=== PATIENT | male | born 1950 | race Caucasian/White ===

== ENCOUNTER → 2018-03-20 16:46 | Outpatient (CLI) | payer OTHER, SELFPAY ==
[2018-03-26 10:26] LABS: Testosterone Free 81.9; Testosterone Total 618
== END ==
PROVIDERS: Family Provider Family Medicine; PCP Family Medicine; Visit Provider Family Medicine
DX: E29.1 Testicular hypofunction (principal)
CPT/HCPCS: 36415; 84402; 84403

== ENCOUNTER → 2018-10-16 13:38 | Outpatient (CLI) | payer OTHER, SELFPAY ==
[2018-10-16 14:01] LABS: Hematocrit 46.8 % (41-53); Hemoglobin 16.3 g/dL (13.5-17.5); Mean Corpuscular HGB Conc 34.8 % (30-36); Mean Corpuscular Hemoglobin 36.4 PG (26-34); Mean Corpuscular Volume 104.5 fL (80-100); Platelet Count 133 X10^3/uL (150-400); Red Blood Cell Count 4.48 X10^6/uL (4.5-5.9); White Blood Cell Count 5.7 X10^3/uL (4.5-11.0)
[2018-10-16 15:35] LABS: BUN Creatinine Ratio 28.8 (6-22); Blood Urea Nitrogen 23 mg/dL (9-20); Calcium 9.4 mg/dL (8.4-10.2); Carbon Dioxide 26 mmol/L (22-32); Chloride 102 mmol/L (98-107); Estimated Glomerular Filt Rate > 60.0 mL/min (>60); Glucose 192 mg/dL (80-110); HEMOLYSIS < 15 (0-50); Potassium 3.8 mmol/L (3.4-5.1); Sodium 139 mmol/L (137-145)
[2018-10-16 15:52] LABS: Vitamin D 25 Hydroxy (D3) 24.7 ng/mL (30.0-100.0)
== END ==
PROVIDERS: PCP Student in an Organized Health Care Education/Training Program; Visit Provider Student in an Organized Health Care Education/Training Program
DX: E55.9 Vitamin D deficiency, unspecified (principal); N14.1 Nephropathy induced by other drugs, medicaments and biological substances; T50.8X5A Adverse effect of diagnostic agents, initial encounter; E29.1 Testicular hypofunction; Z79.899 Other long term (current) drug therapy
CPT/HCPCS: 36415; 80048; 82306; 85027

== ENCOUNTER → 2018-10-23 08:10 | Outpatient (CLI) | payer OTHER, SELFPAY ==
--- NOTE | 2018-10-23 08:11 | DI.MRI.S_ITS ---
PROCEDURE: MR CERVICAL SPINE WO/W CON INDICATIONS: Cervical spine injury with new neurological signs TECHNIQUE: Noncontrast sagittal T1 spin echo and T2 fast spin echo, sagittal STIR, foraminal oblique sagittal T2 fast spin echo, axial gradient echo or T2 fast spin echo through the cervical spine. After the administration of contrast, axial and sagittal T1 spin echo with fat saturation through the cervical spine. COMPARISON: [facility], RG, MRI HEAD W/O CONTRAST, 08/09/2004, 9:09. [facility], CR, CERVICAL SPINE 2 OR 3 VIEWS, 09/18/2016, 16:14. [facility], MR, C-SPINE WITHOUT CONTRAST, 11/06/2016, 19:00. FINDINGS: Image quality: Excellent. Alignment and curvature: There is normal bony alignment. Bones: C5-C6 osseous fusion is stable compared to prior examination. There is mild C4-C5 anterolisthesis which has developed in the interval since the prior MRI. There is mild C6 over C7 retrolisthesis which is stable compared to prior. No suspicious enhancement. Spinal cord: Myelomalacia the level of the C6 vertebral body is stable compared to prior MRI. Mild syrinx below the C7 vertebral body is stable compared to prior examination. No cerebellar tonsillar herniation. Small punctate susceptibility artifact noted in the visualized portion of the cerebellar hemispheres bilaterally concerning for remote hemorrhage. No abnormal intramedullary spinal cord enhancement. Paraspinous soft tissues: No paravertebral masses or suspicious enhancement. C2-3: Loss of disc signal. Mild, diffuse disc bulge. Mild narrowing of the central canal. Mild bilateral facet hypertrophy. Moderate right and severe left neural foraminal narrowing with flattening deformity exiting left C3 nerve root. C3-4: Loss of disc signal and height. Moderate, diffuse disc bulge. Moderate bilateral facet hypertrophy. Moderate bilateral uncovertebral joint hypertrophy. Severe central canal narrowing with mild flattening deformity of the cervical spinal cord. Severe bilateral neural foraminal narrowing with flattening deformity exiting C4 nerve roots. C4-5: Loss of disc signal and height. Mild to moderate diffuse disc bulge. Moderate bilateral facet hypertrophy. Moderate bilateral uncovertebral joint hypertrophy. Moderate to severe narrowing of the central canal. Severe bilateral neural foraminal narrowing with flattening deformity exiting C5 nerve roots. C5-6: Status post fusion. Moderate bilateral facet hypertrophy. No central stenosis. Mild right and moderate left neural foraminal narrowing. No neural impingement. C6-7: Loss of disc signal. Mild, diffuse disc bulge and severe bilateral facet hypertrophy. Moderate bilateral uncovertebral joint hypertrophy. Mild narrowing of the central canal. Severe bilateral neural foraminal narrowing with flattening deformity exiting C7 nerve roots. C7-T1: Loss of disc signal. Mild, diffuse disc bulge. Severe bilateral facet hypertrophy. No central stenosis. Mild bilateral neural foraminal narrowing. No neural impingement. IMPRESSION: 1. C5-C6 osseous fusion stable compared to 11/06/16. 2. Cervical spinal cord myelomalacia at the level of the C6 vertebral body is stable compared to prior MRI examination. Small cervical spinal cord syrinx at level of the C7 vertebral body is stable compared to prior MRI examination. 3. Small punctate susceptibility artifacts involving the visualized portion of the cerebellar hemispheres concerning for remote hemorrhage. Findings not significantly changed compared to prior MRI of the brain obtained 08/09/2004. 4. Multilevel degenerative disc disease. 5. Multilevel facet arthropathy and uncovertebral joint hypertrophy. 6. Severe C3-C4 central canal narrowing. Moderate to severe C4-C5 central canal narrowing. Mild C2-C3 and C6-C7 central canal narrowing. 7. Severe bilateral C3-C4, C4-C5 and C6-C7 neural foraminal narrowing. Moderate right and severe left C2-C3 neural foraminal narrowing. Mild right and moderate left C5-C6 neural foraminal narrowing. Mild bilateral C7-T1 neural foraminal narrowing. Dictated by: Uzma Stephens MD, PhD on 10/23/2018 at 15:35 Approved by: Uzma Stephens MD, PhD on 10/23/2018 at 15:57
== END ==
PROVIDERS: PCP Student in an Organized Health Care Education/Training Program; Visit Provider Student in an Organized Health Care Education/Training Program
DX: G82.54 Quadriplegia, C5-C7 incomplete (principal); G95.89 Other specified diseases of spinal cord; M50.31 Other cervical disc degeneration, high cervical region; M48.02 Spinal stenosis, cervical region; M47.812 Spondylosis without myelopathy or radiculopathy, cervical region; Z98.1 Arthrodesis status
CPT/HCPCS: 72156; A9579

== ENCOUNTER 2018-11-09 00:10 | Emergency (ER) | payer OTHER, SELFPAY ==
[2018-11-09 00:25] VITALS: BP 125/74; PULSE 65; RESP 15; TEMP 36.5; O2SAT 100
[2018-11-09 00:58] VITALS: PULSE 65
--- NOTE | 2018-11-09 01:06 | ED.EXTPRO ---
HPI - Extremity Problem General Chief complaint: Extremity Problem,Nontraumatic Stated complaint: thinks infection in left leg Time Seen by Provider: 11/09/18 00:44 Source: patient Mode of arrival: wheelchair Limitations: no limitations History of Present Illness HPI Narrative: Patient is a 68-year-old male who is a quadriplegic. He is not ambulatory. Here for evaluation of redness and swelling to his left lower extremity. He states he has had cellulitis in the past. Has not had any fevers. States this has been worsening over the past day or so. Denies any specific trauma. States that he does have sensation in his lower extremities. Related Data Home Medications Medication Instructions Recorded Confirmed [glaucoma drops] #0 11/16/17 triamcinolone acetonide 0.1 % 1 applictn TOP BID 10/16/18 10/16/18 topical cream Previous Rx's Medication Instructions Recorded Disabled Parking Permit ea #1 12/05/17 [place] See Rx Instructions IM SEE 03/12/18 INSTRUCTIONS #6 syringes #6 each 06/05/18 ketoconazole 2 % topical cream 1 applictn TOP DAILY #30 gram 10/16/18 testosterone cypionate 200 mg/mL 100 mg IM Q2W #10 ml 10/16/18 intramuscular oil hydrochlorothiazide 12.5 mg tablet 12.5 mg PO QDAY #90 tab 10/20/18 baclofen 20 mg tablet 20 mg PO Q DAY #90 tab 10/28/18 doxycycline hyclate 100 mg PO BID 10 Days #20 cap 11/09/18 Allergies Allergy/AdvReac Type Severity Reaction Status Date / Time No Known Drug Allergies Allergy Verified 11/09/18 00:25 Review of Systems Constitutional Denies fever(s) Cardiovascular Denies chest pain and Denies dyspnea Respiratory Denies dyspnea Musculoskeletal Denies myalgias and Denies arthralgias Integumentary/Breasts Comments: Redness to the left lower extremity below the knee Neurologic Comments: No change in neurologic status from baseline Allergic/Immunologic Denies urticaria PFSH Medical History Chronic back pain (Chronic ~1987) Chronic shoulder pain (Chronic) Glaucoma (Chronic) Insomnia (Chronic) Kidney stones (Chronic) Neuropathy (Chronic) Peripheral neuropathy (Chronic ~1994) Scoliosis (Chronic) Spinal injury (Chronic ~1971) Vision disorder (Chronic) Chicken pox (Resolved) Fractures (Resolved ~1971) Measles (Resolved) Mumps (Resolved) Plantar warts (Resolved ~1959) Surgical History Anesthesia (Resolved) Bursitis of elbow (Resolved) History of laminectomy (Resolved ~2003) S/P diskectomy (Resolved) Status post appendectomy (~1964) Family History Father Cancer Mother Diabetes mellitus Social History Smoking Status: Never smoker Family History Father Cancer Mother Diabetes mellitus Social History Smoking Status: Never smoker Exam Initial Vital Signs Initial Vital Signs: Vital Signs Temperature 97.7 F 11/09/18 00:25 Pulse Rate 65 11/09/18 00:25 Respiratory Rate 15 11/09/18 00:25 Blood Pressure 125/74 11/09/18 00:25 Pulse Oximetry 100 11/09/18 00:25 Const General: comfortable, well developed and No acute distress Orientation: alert, awake and oriented x3 Skin Other: Patient with redness of the left lower extremity circumferential however mostly anterior from below the knee to the mid foot. Neuro Other: No change in neurologic status from baseline. Extrem Other: Able to bend at the knee and the foot without discomfort Course Orders Ordered: Discontinued Medications Acetaminophen/Codeine Phosphate (Tylenol #3 Prepack) 1 bottle MISC SEEINSTR ONE Stop: 11/09/18 01:07 Last Admin: 11/09/18 01:18 Dose: 1 bottle Doxycycline Hyclate (Vibramycin) 100 mg PO NOW ONE Stop: 11/09/18 01:07 Last Admin: 11/09/18 01:16 Dose: 100 mg Vital Signs - 8 hr 11/09/18 00:25 11/09/18 00:58 Temperature 97.7 F Pulse Rate 65 Pulse Rate [Left Dorsalis Pedis] 65 Respiratory Rate 15 Blood Pressure 125/74 Pulse Oximetry 100 MDM - Extremity (Nontraumatic) MDM Narrative Medical decision making narrative: Patient is nontoxic appearing. Does have redness of the left lower extremity concerning for cellulitis. Will start on antibiotics. Not septic. Given his 1st dose here in the ER. He is given return precautions. The area was outlined with a pen. He expressed understanding and agreement with plan. Discharge Plan Departure Patient Disposition: Home Clinical Impression: Cellulitis Qualifiers: Site of cellulitis: extremity Site of cellulitis of extremity: lower extremity Laterality: left Qualified Code(s): L03.116 - Cellulitis of left lower limb Discharge Date/Time: 11/09/18 01:20 Interventions: ED Discharge Assessment Last Done: 11/09/18 01:20 Instructions: DI for Cellulitis -- Adult Activity Restrictions/Additional Instructions: Fill the antibiotics and start taking them tomorrow morning as directed. You can shower like normal. If the redness extends outside of the line that was drawn please return to the emergency department. Return if you start to develop fevers or other worsening symptoms. Prescriptions: New doxycycline hyclate 100 mg capsule 100 mg PO BID 10 Days Qty: 20 RF: 0 No Action [glaucoma drops] Qty: 0 RF: 0 Disabled Parking Permit Qty: 1 RF: 0 [place] See Rx Instructions IM SEE INSTRUCTIONS Qty: 6 RF: 0 syringes 3ml Qty: 6 RF: 0 baclofen 20 mg tablet 20 mg PO Q DAY Qty: 90 RF: 1 triamcinolone acetonide 0.1 % cream 1 applictn TOP BID RF: 0 ketoconazole 2 % cream 1 applictn TOP DAILY Qty: 30 RF: 1 testosterone cypionate [Depo-Testosterone] 200 mg/mL oil 100 mg IM Q2W Qty: 10 RF: 5 hydrochlorothiazide 12.5 mg tablet 12.5 mg PO QDAY Qty: 90 RF: 1 Referrals: Constantin Brown MD [Primary Care Provider] -
[2018-11-09] MEDS: DOXYCYCLINE HYCLATE 100 MG TABLET PO (01:16)
[2018-11-09] MEDS: CODEINE/APAP 30/300 PREPACK 1 BOTTLE MISC (01:18)
== END 2018-11-09 01:20 | disposition home or self-care (01) ==
PROVIDERS: Emergency Provider Emergency Medicine; PCP Student in an Organized Health Care Education/Training Program
DX: L03.116 Cellulitis of left lower limb (principal)
CPT/HCPCS: 99282; 99283

== ENCOUNTER → 2020-03-17 09:31 | Outpatient (CLI) | payer OTHER, SELFPAY ==
[2020-03-17 11:14] LABS: Erythrocyte Sedimentation Rate 5 MM/HR (0-15)
[2020-03-17 11:27] LABS: Prostate Specific Antigen Scrn 0.842 ng/mL (0.1-4.0)
[2020-03-17 11:37] LABS: BUN Creatinine Ratio 32.9 (6-22); Blood Urea Nitrogen 26 mg/dL (9-20); Calcium 9.8 mg/dL (8.4-10.2); Carbon Dioxide 29 mmol/L (22-32); Chloride 102 mmol/L (98-107); Estimated Glomerular Filt Rate > 60.0 mL/min (>60); Glucose 68 mg/dL (80-110); HEMOLYSIS < 15 (0-50); Potassium 4.4 mmol/L (3.4-5.1); Sodium 137 mmol/L (137-145)
[2020-03-17 11:40] LABS: C-Reactive Protein Quant < 0.5 mg/dL (<1.0)
== END ==
PROVIDERS: PCP Student in an Organized Health Care Education/Training Program; Referring Provider Student in an Organized Health Care Education/Training Program; Visit Provider Student in an Organized Health Care Education/Training Program
DX: R51 Headache (principal); T50.2X5A Adverse effect of carbonic-anhydrase inhibitors, benzothiadiazides and other diuretics, initial encounter; Z12.5 Encounter for screening for malignant neoplasm of prostate
CPT/HCPCS: 36415; 80048; 85651; 86140; G0103

== ENCOUNTER 2020-03-28 23:16 | Emergency (ER) | payer OTHER, MEDICARE, SELFPAY ==
[2020-03-28 23:29] VITALS: BP 124/59; PULSE 67; RESP 18; TEMP 37.3; O2SAT 95; BMI 20.8
--- NOTE | 2020-03-29 00:42 | ED_ITS ---
HPI - Skin/Abscess/Foreign Bdy General Chief complaint: Skin/Abscess/Foreign Body Stated complaint: thiks celluliltis on left calf Time Seen by Provider: 03/28/20 23:48 Source: patient Mode of arrival: Wheelchair Limitations: no limitations History of Present Illness HPI narrative: 69-year-old male nonsmoker with history of spinal cord injury resulting in paraplegia with loss of use of lower extremities presents with his in the chief complaint about a day and a half painful left lower extremity with redness and warmth and what feels like a knot behind his calf in the absence of any known injury. He has had cellulitis multiple times and states this feels the same. He denies the use of anticoagulation or any history of blood clot. He denies any fever or chills nor any other systemic complaints such as nausea, vomiting or diarrhea. MD complaint: other Onset (ago): day(s) Tetanus up to date: yes Location: LLE Severity: moderate Quality: aching Pain Consistency: constant Relieving factors: rest Exacerbating factors: palpation Associated symptoms: denies other symptoms Treatments prior to arrival: none Related Data Previous Rx's Medication Instructions Recorded baclofen 20 mg tablet 20 mg PO Q DAY #90 tab 05/05/19 temazepam 7.5 mg capsule 7.5 mg PO BEDTIME PRN #30 cap 10/07/19 BD 3ml Syringe w/needle #100 each 12/01/19 testosterone cypionate 200 mg/mL 100 mg IM Q2W #10 ml 12/03/19 intramuscular oil hydrochlorothiazide 12.5 mg tablet 12.5 mg PO QDAY #90 tab 01/29/20 doxycycline hyclate 100 mg PO BID 10 Days #20 tab 03/29/20 Allergies Allergy/AdvReac Type Severity Reaction Status Date / Time No Known Drug Allergies Allergy Verified 03/17/20 08:56 Review of Systems Constitutional Constitutional: Denies chills, Denies fatigue, Denies fever(s), Denies frequent falls, Denies lethargy and Denies weakness Eyes Eyes: Denies change in vision, Denies eye discharge, Denies irritation and Denies loss of vision ENT Ears, Nose, Mouth, and Throat: Denies change in voice, Denies dizziness, Denies neck pain, Denies sore throat and Denies throat swelling Cardiovascular Cardiovascular: Denies chest pain, Denies irregular heart rhythm, Denies lightheadedness, Denies palpitations, Denies dyspnea, Denies dyspnea on exertion and Denies orthopnea Respiratory Respiratory: Denies cough, Denies dyspnea, Denies dyspnea on exertion and Denies wheezing Gastrointestinal Gastrointestinal: Denies abdominal pain, Denies change in bowel habits, Denies diarrhea, Denies nausea and Denies vomiting Musculoskeletal Musculoskeletal: Denies neck pain and Denies numbness Integumentary/Breasts Skin/Breast: Denies pruritus, Reports erythema, Denies rash, Reports skin pain, Reports skin swelling and Denies wounds Neurologic Neurologic: Denies behavioral changes, Denies confusion, Denies dizziness, Denies frequent falls, Denies loss of vision, Denies numbness and Denies weakness Psychiatric Psychiatric: Denies anxiety, Denies behavioral changes, Denies confusion, Denies depression, Denies homicidal ideation and Denies suicidal ideation Endocrine Endocrine: Denies fatigue, Denies flushing and Denies palpitations Hematologic/Lymphatic Hematologic/Lymphatic: Denies easy bruising Allergic/Immunologic Allergic/Immunologic: Denies urticaria, Denies throat swelling and Denies wheezing Patient History Medical History Chicken pox (Resolved) Chronic back pain (Chronic ~1987) Chronic shoulder pain (Chronic) Fractures (Resolved ~1971) Glaucoma (Chronic) Insomnia (Chronic) Kidney stones (Chronic) Measles (Resolved) Mumps (Resolved) Neuropathy (Chronic) Peripheral neuropathy (Chronic ~1994) Plantar warts (Resolved ~1959) Scoliosis (Chronic) Spinal injury (Chronic ~1971) Vision disorder (Chronic) Surgical History Anesthesia (Resolved) Bursitis of elbow (Resolved) History of laminectomy (Resolved ~2003) S/P diskectomy (Resolved) Status post appendectomy (~1964) Family History Father Cancer Mother Diabetes mellitus Social History Smoking Status: Never smoker alcohol intake: current substance use type: does not use Smoking Status: Never smoker alcohol intake frequency: holidays/special occasions only Substance Use Type: does not use Exam Narrative Exam Narrative: GEN: AOx3 and in mild distress EYES: Pupils are equal, round, and reactive to light and accommodation. Extraoccular muscles are intact bilaterally. There is no subconjunctival hemorrhage or exudate. CHEST: Lungs are clear to auscultation bilaterally and free of wheezes, rales, or rhonchi. Heart rate is regular rhythm, there are no murmurs, clicks, rubs, or gallops. There is no chest wall tenderness. ABD: Abdomen is soft and nontender. There is no guarding or rebound. Bowel sounds are normal in all 4 quadrants. There is no mass or organomegaly. EXT: Full painless ROM of all extremities with no loss of sensation or strength. SKIN: Much of the left lower extremity is erythematous and warm with swelling and majority of pain and posterior medial calf Warm, pink, and dry. No erythema or rash Initial Vital Signs Initial Vital Signs: Vital Signs Temperature 99.1 F 03/28/20 23:29 Pulse Rate 67 03/28/20 23:29 Respiratory Rate 18 03/28/20 23:29 Blood Pressure 124/59 L 03/28/20 23:29 Pulse Oximetry 95 03/28/20 23:29 Course Orders Ordered: ED Orders 03/29/20 01:22 Complete Blood Count AUTO DIFF Stat D Dimer Stat 03/29/20 01:56 US periph venous low extrem lt Stat Discontinued Medications Doxycycline Hyclate (Vibramycin) 100 mg PO NOW ONE Stop: 03/29/20 03:32 Last Admin: 03/29/20 03:56 Dose: 100 mg Documented by: LORETTA Vital Signs Vital signs: Vital Signs - 8 hr 03/28/20 23:29 03/29/20 03:58 Temperature 99.1 F Pulse Rate 67 67 Respiratory Rate 18 16 Blood Pressure 124/59 L 123/63 Pulse Oximetry 95 98 MDM - Skin/Abscess/Foreign Bdy Lab Data Result diagrams: 03/29/20 01:22 Labs: Lab Results 03/29/20 03/29/20 Range/Units 01:22 01:22 WBC 10.2 (4.5-11.0) X10^3/uL RBC 4.33 L (4.5-5.9) X10^6/uL Hgb 15.7 (13.5-17.5) g/dL Hct 44.4 (41-53) % MCV 102.4 H (80-100) fL MCH 36.1 H (26-34) PG MCHC 35.3 (30-36) % RDW 12.8 (11.6-14.8) % Plt Count 122 L (150-400) X10^3/uL Neut % (Auto) 84.0 H (50-75) % Lymph % (Auto) 6.0 L (25-40) % [place] % (Auto) 8.5 (3-14) % Eos % (Auto) 1.2 L (2-4) % Baso % (Auto) 0.3 (0-2) % Neut # (Auto) 8600 H (2686-9304) /uL Lymph # (Auto) 600 L (2473-0657) /uL [place] # (Auto) 900 (0-900) /uL Eos # (Auto) 100 (0-450) /uL Baso # (Auto) 0 (0-100) /uL D-Dimer 381 H (<230) ng/mL Imaging Data US - DVT: Radiologist's Impression: No DVT Discharge Plan Departure Patient Disposition: Home Clinical Impression: Cellulitis of left leg Instructions: DI for Cellulitis -- Adult Activity Restrictions/Additional Instructions: *You have been diagnosed with [acute left lower extremity cellulitis] *What to do: *Take medications as directed: Prescription sent to [facility] *Follow up with your primary care provider in 2-3 days, call for an appoin tment. Let them know you were seen in the Emergency Department and that we ask that you be seen in follow up *Return to ER if you should have any new, worsening or concerning symptoms Prescriptions: New doxycycline hyclate 100 mg tablet 100 mg PO BID 10 Days Qty: 20 RF: 0 No Action baclofen 20 mg tablet 20 mg PO Q DAY Qty: 90 RF: 3 temazepam 7.5 mg capsule 7.5 mg PO BEDTIME PRN (Reason: sleep) Qty: 30 RF: 2 (DME) BD 3ml Syringe w/needle 21g x 1 Qty: 100 RF: 0 testosterone cypionate [Depo-Testosterone] 200 mg/mL oil 100 mg IM Q2W Qty: 10 RF: 5 hydrochlorothiazide 12.5 mg tablet 12.5 mg PO QDAY Qty: 90 RF: 1 Referrals: Constantin Brown MD [Primary Care Provider] -
[2020-03-29 01:37] LABS: Add Manual Diff / Slide Review NO; Basophils Absolute Auto 0 /uL (0-100); Basophils Percent Auto 0.3 % (0-2); Eosinophils Absolute Auto 100 /uL (0-450); Eosinophils Percent Auto 1.2 % (2-4); Hematocrit 44.4 % (41-53); Hemoglobin 15.7 g/dL (13.5-17.5); Lymphocytes Absolute Auto 600 /uL (1100-4500); Mean Corpuscular HGB Conc 35.3 % (30-36); Mean Corpuscular Hemoglobin 36.1 PG (26-34); Mean Corpuscular Volume 102.4 fL (80-100); Monocytes Absolute Auto 900 /uL (0-900); Monocytes Percent Auto 8.5 % (3-14); Neutrophils Absolute Auto 8600 /uL (1500-7000); Platelet Count 122 X10^3/uL (150-400); Red Blood Cell Count 4.33 X10^6/uL (4.5-5.9); Red Cell Distribution Width 12.8 % (11.6-14.8); White Blood Cell Count 10.2 X10^3/uL (4.5-11.0)
[2020-03-29 01:51] LABS: D Dimer 381 ng/mL (<230)
--- NOTE | 2020-03-29 01:56 | DI.US.S_ITS ---
PROCEDURE: US PERIPH VENOUS LOW EXTREM LT INDICATIONS: PAIN, REDNESS, SWELLING, ELEVATED DDIMER, SEDENTARY TECHNIQUE: Real-time imaging, as well as color and pulse Doppler interrogation, were performed of the lower extremity deep veins from the inguinal ligament to the popliteal fossa. COMPARISON: None. FINDINGS: The common femoral, femoral and popliteal veins are normally compressible, and free of intraluminal thrombus. Color and pulse Doppler demonstrate normal phasic intraluminal flow. There is normal augmentation response to distal compression maneuver. Incidental note made of nonspecific soft tissue edema involving the left calf. IMPRESSION: No evidence of deep vein thrombosis involving the left lower extremity. Dictated by: Uzma Stephens MD, PhD on 03/29/2020 at 7:09 Approved by: Uzma Stephens MD, PhD on 03/29/2020 at 7:10
[2020-03-29] MEDS: DOXYCYCLINE HYCLATE 100 MG TABLET PO (03:56)
[2020-03-29 03:58] VITALS: BP 123/63; PULSE 67; RESP 16; O2SAT 98
== END 2020-03-29 04:10 | disposition home or self-care (01) ==
PROVIDERS: Emergency Provider Emergency Medicine; PCP Student in an Organized Health Care Education/Training Program
DX: L03.116 Cellulitis of left lower limb (principal)
CPT/HCPCS: 36415; 85025; 85379; 93971; 99284

== ENCOUNTER → 2020-09-10 15:18 | Outpatient (CLI) | payer OTHER, SELFPAY ==
[2020-09-10] MEDS: COVID-19 VACC #1, MRNA(MOD) 100 MCG/0.5 ML VIAL IM (15:27)
== END ==
PROVIDERS: PCP Student in an Organized Health Care Education/Training Program; Visit Provider Internal Medicine
DX: Z23 Encounter for immunization (principal)
CPT/HCPCS: 0011A; 91301

== ENCOUNTER → 2020-10-08 13:49 | Outpatient (CLI) | payer OTHER, SELFPAY ==
[2020-10-08] MEDS: COVID-19 VACC #2, MRNA(MOD) 100 MCG/0.5 ML VIAL IM (13:58)
== END ==
PROVIDERS: PCP Student in an Organized Health Care Education/Training Program; Visit Provider Internal Medicine
DX: Z23 Encounter for immunization (principal)
CPT/HCPCS: 0012A; 91301

== ENCOUNTER → 2021-10-03 07:03 | Outpatient (CLI) | payer OTHER, SELFPAY ==
[2021-10-03 08:19] LABS: Add Manual Diff / Slide Review NO; Basophils Absolute Auto 0 /uL (0-100); Basophils Percent Auto 0.7 % (0-2); Eosinophils Absolute Auto 200 /uL (0-450); Eosinophils Percent Auto 5.1 % (2-4); Hematocrit 41.8 % (41-53); Lymphocytes Absolute Auto 700 /uL (1100-4500); Lymphocytes Percent Auto 18.2 % (25-40); Mean Corpuscular Hemoglobin 36.1 PG (26-34); Mean Corpuscular Volume 100.4 fL (80-100); Monocytes Absolute Auto 400 /uL (0-900); Monocytes Percent Auto 10.2 % (3-14); Neutrophils Absolute Auto 2700 /uL (1500-7000); Neutrophils Percent Auto 65.8 % (50-75); Platelet Count 155 X10^3/uL (150-400); Red Blood Cell Count 4.16 X10^6/uL (4.5-5.9); Red Cell Distribution Width 12.9 % (11.6-14.8); White Blood Cell Count 4.1 X10^3/uL (4.5-11.0)
[2021-10-03 08:39] LABS: Blood Urea Nitrogen 25 mg/dL (9-20); Calcium 9.3 mg/dL (8.4-10.2); Carbon Dioxide 32 mmol/L (22-32); Chloride 105 mmol/L (98-107); Cholesterol 152 mg/dL (140-199); Estimated Glomerular Filt Rate > 60.0 mL/min (>60); Glucose 98 mg/dL (80-110); HDL Cholesterol 72 mg/dL (40-60); HEMOLYSIS < 15 (0-50); LDL Cholesterol Calculated 71 mg/dL (<100); Potassium 3.7 mmol/L (3.4-5.1); Sodium 138 mmol/L (137-145); Triglycerides 44 mg/dL (35-150)
[2021-10-03 08:48] LABS: Vitamin D 25 Hydroxy (D3) 36.7 ng/mL (30.0-100.0)
[2021-10-03 09:06] LABS: Prostate Specific Antigen Scrn 0.864 ng/mL (0.1-4.0)
[2021-10-03 09:09] LABS: Testosterone 555 ng/dL (71.8-623)
== END ==
PROVIDERS: PCP Student in an Organized Health Care Education/Training Program; Referring Provider Student in an Organized Health Care Education/Training Program; Visit Provider Student in an Organized Health Care Education/Training Program
DX: E29.1 Testicular hypofunction (principal); E55.9 Vitamin D deficiency, unspecified; I89.0 Lymphedema, not elsewhere classified; Z13.220 Encounter for screening for lipoid disorders; Z12.5 Encounter for screening for malignant neoplasm of prostate
CPT/HCPCS: 36415; 80048; 80061; 82306; 84403; 85025; G0103

== ENCOUNTER 2022-10-16 05:52 | Emergency (ER) | payer OTHER, SELFPAY ==
--- NOTE | 2022-10-16 06:27 | ED_ITS ---
HPI - Extremity Problem General Chief complaint: Extremity Problem,Nontraumatic Stated complaint: cellulitis left ankle Time Seen by Provider: 10/16/22 05:57 History of Present Illness HPI Narrative: 72-year-old male nonsmoker with history of spinal cord injury resulting in quadriplegia with prior episodes of cellulitis presents with a chief complaint of redness and swelling to the left lower extremity over the past few days. He has no systemic complaints such as fever, chills nor nausea or vomiting. He denies any injury. He is no pain in his calf or medial thigh. Sensation is intact and unchanged. Related Data Previous Rx's Medication Instructions Recorded BD 3ml Syringe w/needle #100 ea 12/01/19 testosterone cypionate 200 mg/mL 100 mg (0.5 mL) IM Q2W #1 mL 08/23/21 intramuscular oil (Depo-Testosterone) hydrochlorothiazide 12.5 mg tablet 12.5 mg PO QDAY #90 tabs 02/07/22 doxycycline hyclate 100 mg tablet 100 mg PO BID #20 tabs 10/16/22 Allergies Allergy/AdvReac Type Severity Reaction Status Date / Time No Known Drug Allergies Allergy Verified 02/14/21 11:29 Review of Systems Review of Systems Narrative: GENERAL: Denies chills, fatigue, malaise, fever, sweats. HEENT: Denies sinus pain, ear pain, sore throat, difficulty swallowing, dizziness. RESPIRATORY: Denies dyspnea, cough, wheezing, hemoptysis, sputum. CARDIOVASCULAR: Denies chest pain, palpitations, orthopnea, edema, GASTROINTESTINAL: Denies nausea, vomiting, abdominal pain, diarrhea, constipa tion, melena. : Denies dysuria, frequency, incontinence, hematuria, urinary retention. MUSCULOSKELETAL: denies weakness, joint pain, or bony pain SKIN: See HPI NEUROLOGIC: Denies weakness, headache, numbness, change in speech, confusion, seizures, incoordination. PSYCHIATRIC: No concerning psychosocial issues. 12 point review of systems is negative except for those stated above Patient History Medical History Chicken pox Chronic back pain (~1987) Chronic right shoulder pain (09/12/16) Chronic shoulder pain Fx C5 vertebra-closed (02/10/04) Glaucoma Incomplete quadriplegia due to spinal cord lesion between fifth and seventh cervical vertebra (12/16/15) Kidney stones Measles Mumps Peripheral neuropathy (~1994) Plantar warts (~1959) Primary insomnia (12/16/15) Scoliosis Spinal injury (~1971) Syringomyelia Vision disorder Surgical History Anesthesia Bursitis of elbow History of laminectomy (~2003) S/P diskectomy Status post appendectomy (~1964) Family History Father Cancer Mother Diabetes mellitus Social History Smoking Status: Never smoker alcohol intake: current substance use type: does not use Smoking Status: Never smoker alcohol intake frequency: holidays/special occasions only Substance Use Type: does not use Exam Narrative Exam Narrative: GEN: AOx3 and in mild distress EYES: Pupils are equal, round, and reactive to light and accommodation. Extraoccular muscles are intact bilaterally. There is no subconjunctival hemorrhage or exudate. CHEST: Lungs are clear to auscultation bilaterally and free of wheezes, rales, or rhonchi. Heart rate is regular rhythm, there are no murmurs, clicks, rubs, or gallops. There is no chest wall tenderness. ABD: Abdomen is soft and nontender. There is no guarding or rebound. Bowel sounds are normal in all 4 quadrants. There is no mass or organomegaly. EXT: Full painless ROM of all extremities with no loss of sensation or strength. SKIN: Redness and warmth along left lateral lower extremity without induration or fluctuance, no breaks in the skin, not circumferential, no pain with calf squeeze or passive dorsiflexion at the ankle, no lymphangitis, or medial thigh pain Initial Vital Signs Initial Vital Signs: Vital Signs Pulse Rate 59 L 10/16/22 06:43 Blood Pressure 131/66 10/16/22 06:43 Pulse Oximetry 99 10/16/22 06:43 Course Orders Ordered: Discontinued Medications Doxycycline Hyclate (Doxycycline Hyclate 100 Mg Tablet) 100 mg PO NOW ONE Stop: 10/16/22 07:14 Last Admin: 10/16/22 07:24 Dose: 100 mg Documented By: CTS MDM - Extremity (Nontraumatic) MDM Narrative Medical decision making narrative: [72] year old patient presents with left lateral leg pain redness in the absence of injury Multiple etiologies for patient's symptoms considered including, but not limited to: [Infection versus DVT versus other] Prior Charts reviewed in our EMR Primary Historian: patient Imaging reviewed: Ultrasound negative for DVT Multiple diagnoses considered, noted above, for pain and redness in the absence of injury, most notably infection versus clot. Patient has had cellulitis in the past states this has presented in a similar fashion, thankfully has no systemic findings that would suggest a large workup is necessary. Ultrasound shows no finding of clot. At this finding I discussed antibiotic options with patient and , questions answered to their apparent satisfaction Findings and discharge diagnosis discussed with patient/family followed by verbalization of understanding Return precautions discussed with patient/family whom verbalize understanding of diagnosis and plan Discharge Plan Departure Patient Disposition: Home Clinical Impression: Cellulitis of left leg Instructions: DI for Cellulitis -- Adult Activity Restrictions/Additional Instructions: *You have been diagnosed with [left lower extremity redness and warmth, likely due to cellulitis. As we discussed the ultrasound was negative for DVT] *What to do: *Please continue to take your regular medications as directed. [x ] New medication prescriptions sent to your pharmacy: [[facility] ] [ ] New medication written as a paper prescription [ ] No new medications given *Please follow up with your primary care provider in 2-3 days, call for an appointment. Let them know you were seen in the Emergency Department and that we ask that you be seen in follow up. We will electronically transmit a record of today's note if your PCP is in our system *Return to Emergency Department if you should have any new, worsening or concerning symptoms, such as [fever greater than 101 F, shaking chills, worsening pain, persistent vomiting or other bothersome symptoms] Prescriptions: New doxycycline hyclate 100 mg tablet 100 mg PO BID Qty: 20 0RF No Action (DME) BD 3ml Syringe w/needle 21g x 1 Qty: 100 0RF Rx Instructions: Use along w/needles to inject testosterone. testosterone cypionate [Depo-Testosterone] 200 mg/mL oil 100 mg IM Q2W Qty: 1 0RF Rx Instructions: Inject 100mg (0.5mL) every 2 weeks for hypogonadism. hydrochlorothiazide 12.5 mg tablet 12.5 mg PO QDAY Qty: 90 1RF Referrals: Constantin Brown MD [Physician] - Stand Alone Forms: Patient Portal/API
[2022-10-16 06:43] VITALS: BP 131/66; PULSE 59; O2SAT 99
--- NOTE | 2022-10-16 06:43 | DI.US.S_ITS ---
PROCEDURE: [facility] VENOUS LOW EXTREM LT INDICATIONS: LEFT LOWR EXTREMITY PAIN REDNESS TECHNIQUE: Real-time imaging, as well as color and pulse Doppler interrogation, were performed of the lower extremity deep veins from the inguinal ligament to the popliteal fossa. COMPARISON: [facility], [facility] VENOUS LOW EXTREM LT, 03/29/2020, 2:30. FINDINGS: The common femoral, femoral and popliteal veins are normally compressible, and free of intraluminal thrombus. Color and pulse Doppler demonstrate normal phasic intraluminal flow. There is normal augmentation response to distal compression maneuver. IMPRESSION: Negative left lower extremity duplex venous ultrasound for DVT. Dictated by: Travis Muñiz M.D. on 10/16/2022 at 7:55 Approved by: Travis Muñiz M.D. on 10/16/2022 at 7:55
[2022-10-16 06:47] VITALS: BP 131/66; PULSE 60; RESP 16; TEMP 36.5; O2SAT 99; BMI 21.1
[2022-10-16 07:00] VITALS: BP 134/73; PULSE 59; O2SAT 100
[2022-10-16] MEDS: DOXYCYCLINE HYCLATE 100 MG TABLET PO (07:24)
== END 2022-10-16 07:28 | disposition home or self-care (01) ==
PROVIDERS: Emergency Provider Emergency Medicine; PCP Family Medicine
DX: L03.116 Cellulitis of left lower limb (principal)
CPT/HCPCS: 93971; 99283

== ENCOUNTER → 2023-03-27 07:03 | Outpatient (CLI) | payer OTHER, SELFPAY ==
[2023-03-27 08:28] LABS: Add Manual Diff / Slide Review NO; Basophils Absolute Auto 0 /uL (0-100); Basophils Percent Auto 0.6 % (0-2); Eosinophils Absolute Auto 100 /uL (0-450); Hematocrit 39.6 % (41-53); Hemoglobin 14.4 g/dL (13.5-17.5); Lymphocytes Absolute Auto 600 /uL (1100-4500); Lymphocytes Percent Auto 18.9 % (25-40); Mean Corpuscular HGB Conc 36.5 % (30-36); Mean Corpuscular Hemoglobin 36.1 PG (26-34); Mean Corpuscular Volume 99.1 fL (80-100); Monocytes Absolute Auto 400 /uL (0-900); Monocytes Percent Auto 10.9 % (3-14); Neutrophils Absolute Auto 2200 /uL (1500-7000); Neutrophils Percent Auto 65.6 % (50-75); Platelet Count 151 X10^3/uL (150-400); Red Cell Distribution Width 13.5 % (11.6-14.8); White Blood Cell Count 3.4 X10^3/uL (4.5-11.0)
[2023-03-27 08:58] LABS: Alanine Aminotransferase 14 IU/L (<50); Albumin 4.1 g/dL (3.5-5.0); Albumin Globulin Ratio 1.3 (1.0-2.8); Alkaline Phosphatase 90 U/L (38-126); Aspartate Aminotransferase 33 IU/L (17-59); BUN Creatinine Ratio 31.9 (6-22); Bilirubin Total 0.8 mg/dL (0.2-1.3); Blood Urea Nitrogen 29 mg/dL (9-20); Carbon Dioxide 27 mmol/L (22-32); Chloride 103 mmol/L (98-107); Cholesterol 183 mg/dL (140-199); Estimated Glomerular Filt Rate > 60 mL/min (>60); Globulin 3.1 g/dL (1.7-4.1); Glucose 91 mg/dL (80-110); HDL Cholesterol 73 mg/dL (40-60); HEMOLYSIS < 15 (0-50); LDL Cholesterol Calculated 98 mg/dL (<100); Sodium 138 mmol/L (137-145); Total Protein 7.2 g/dL (6.3-8.2); Triglycerides 60 mg/dL (35-150)
[2023-03-27 09:21] LABS: Prostate Specific Antigen 0.519 ng/mL (0.10-4.00)
== END ==
PROVIDERS: PCP Physician Assistant; Referring Provider Physician Assistant; Visit Provider Physician Assistant
DX: Z13.6 Encounter for screening for cardiovascular disorders (principal); Z12.5 Encounter for screening for malignant neoplasm of prostate; D64.9 Anemia, unspecified
CPT/HCPCS: 36415; 80053; 80061; 84153; 85025

== ENCOUNTER 2024-04-25 07:33 | Emergency (ER) | payer OTHER, SELFPAY ==
[2024-04-25] VITALS (14 sets, daily range): BP systolic 108–147; BP diastolic 59–79; PULSE 47–60; RESP 16; TEMP 36.6; O2SAT 95–99; BMI 21.1
--- NOTE | 2024-04-25 08:17 | ED_ITS ---
HPI - Extremity Injury (Upper) General Chief Complaint: Extremity Injury, Upper Stated Complaint: L shoulder pain Time Seen by Provider: 04/25/24 08:06 History of Present Illness HPI narrative: 73-year-old male right-handed, has ongoing left shoulder pain, seen by Orthopedic surgery Dr. Jefferson few days ago had left shoulder injection, since that time has had a ?slipped? injury trying to transfer himself with increasing pain, to the left scapular area. Denies neck pain. Denies head injuries. No other areas of new discomfort. Has baseline weakness using scooter at home. Lives with /caregiver. Related Data Previous Rx's Medication Instructions Recorded BD 3ml Syringe w/needle #100 ea 12/01/19 testosterone cypionate 200 mg/mL 100 mg (0.5 mL) IM Q2W #1 mL 08/23/21 intramuscular oil (Depo-Testosterone) hydrochlorothiazide 12.5 mg tablet 12.5 mg PO QDAY #90 tabs 02/07/22 doxycycline hyclate 100 mg tablet 100 mg PO BID #20 tabs 10/16/22 methocarbamol 500 mg tablet 500 mg PO TID 7 days #21 tabs 04/25/24 Allergies Allergy/AdvReac Type Severity Reaction Status Date / Time No Known Drug Allergies Allergy Verified 04/25/24 12:11 Review of Systems Review of Systems Narrative: see HPI Patient History Medical History Chicken pox Chronic back pain (~1987) Chronic right shoulder pain (09/12/16) Chronic shoulder pain Fx C5 vertebra-closed (02/10/04) Glaucoma Incomplete quadriplegia due to spinal cord lesion between fifth and seventh cervical vertebra (12/16/15) Kidney stones Measles Mumps Peripheral neuropathy (~1994) Plantar warts (~1959) Primary insomnia (12/16/15) Scoliosis Spinal injury (~1971) Syringomyelia Vision disorder Surgical History Anesthesia Bursitis of elbow History of laminectomy (~2003) S/P diskectomy Status post appendectomy (~1964) Family History Father Cancer Mother Diabetes mellitus Social History Smoking Status: Never smoker alcohol intake: current substance use type: does not use Smoking Status: Never smoker alcohol intake frequency: holidays/special occasions only Substance Use Type: does not use Exam Narrative Exam Narrative: GENERAL: Well-developed patient, in mild distress. HEAD: Atraumatic. Normocephalic. EYES: Pupils equal round and reactive. Extraocular motions intact. No scleral icterus. No injection or drainage. ENT: Nose without bleeding, purulent drainage. Throat without erythema, tonsillar hypertrophy or exudate. Airway patent. NECK: Trachea midline. Non tender CARDIOVASCULAR: Regular rate and rhythm without murmurs, gallops, or rubs. RESPIRATORY: Clear to auscultation. Breath sounds equal bilaterally. No wheezes, rales, or rhonchi. GASTROINTESTINAL: Abdomen soft, non-tender, nondistended. EXTREMITIES: Some erythema to left anterior shoulder that attributes to warm packs, not consistent with cellulitis, no gross shoulder deformity. Mild tenderness anterior shoulder. No tenderness along left AC joint, no tenderness superior trapezius. There is some muscle spasm and tenderness along the upper left rhomboid musculature. No tenderness to left humerus, elbow, forearm, wrist. Muscle wasting changes noticed bilateral upper extremities, hands, 1st webspace. BACK: Nontender without deformity or crepitance. No flank tenderness. NEURO: AOx3. Nonfocal neuro exam, limited by left shoulder injury SKIN: No rash or erythema of visible areas Initial Vital Signs Initial Vital Signs: Vital Signs Pulse Rate 54 L 04/25/24 07:35 Pulse Oximetry 96 04/25/24 07:35 Course Orders Ordered: Discontinued Medications Methocarbamol (Methocarbamol 500 Mg Tablet) 500 mg PO NOW ONE Stop: 04/25/24 08:55 Last Admin: 04/25/24 09:07 Dose: 500 mg Documented By: ROWENA Vital Signs Vital signs: Vital Signs - 8 hr 04/25/24 07:35 04/25/24 07:36 04/25/24 07:36 Temperature 97.8 F Pulse Rate 54 L 50 L Respiratory Rate 16 Blood Pressure 147/76 H 141/76 H Pulse Oximetry 96 97 Oxygen Delivery Method Room Air 04/25/24 07:36 04/25/24 08:00 04/25/24 08:31 Temperature Pulse Rate 53 L 48 L 51 L Respiratory Rate Blood Pressure Pulse Oximetry 98 96 97 Oxygen Delivery Method 04/25/24 08:42 04/25/24 08:42 04/25/24 09:00 Temperature Pulse Rate 47 L Respiratory Rate Blood Pressure 116/65 122/70 Pulse Oximetry 97 Oxygen Delivery Method 04/25/24 09:00 Temperature Pulse Rate 47 L Respiratory Rate Blood Pressure Pulse Oximetry 97 Oxygen Delivery Method MDM - Extremity Injury (Upper) Imaging Data Extremity x-ray #1: Radiologist's Impression: [address] [address] XRay Report Signed Patient: Elbert Mc MR#: [id number] : 1950 Acct:[id number] Age/Sex: 73 / M Date of Service: 04/25/24 Loc: ED Accession Number: [id number] Procedure: XR shoulder LT min 2V Ordering Provider: Elbert Duke MD PROCEDURE: XR SHOULDER LT MIN 2V INDICATIONS: pain x3 weeks TECHNIQUE: 3 views of the shoulder were acquired. COMPARISON: None. FINDINGS: Bones: No fractures or dislocations. No suspicious bony lesions. Visualized ribs appear intact. Soft tissues: No suspicious soft tissue calcifications. IMPRESSION: No acute bony abnormality. Dictated by: Travis Muñiz M.D. on 04/25/2024 at 8:30 Approved by: Travis Muñiz M.D. on 04/25/2024 at 8:33 [facility] [place] Narrative Medical decision making narrative: 73-year-old male with ongoing left shoulder discomfort, limited baseline function due to weakness, using scooter at home, recent joint injection local orthopedic surgery few days ago to the left shoulder, pain left shoulder blade area after attempted transfers, possible strain. Some tenderness rhomboid area, either primary injury or secondary spasm to ongoing shoulder pain issue left side. X-ray without obvious gross deformity or dislocation my wet read, await radiologist's review. Left shoulder sling for comfort. Oral Robaxin dose. He has been taking ibuprofen. Patient/ concern about his ability to function at home, she can not transfer him. dietary services director consultation, possible home health assistance. dietary services director evaluation, they did not want shelter placement, they have a home caregiver, S transport for 1:00 p.m. arrival went home caregivers available at their household. We will follow up with Orthopedic surgery on Sunday as scheduled. Robaxin given, sling placed, they decided they did not want to stay for social work associate consultation, they will follow up with Orthopedic surgery on Sunday in 3 days as scheduled. Return precautions discussed. Improved, home with . Advised Tylenol/Motrin as needed for pain control. Prescription for Robaxin sent to their pharmacy for home trial. Discharge Plan Departure Patient Disposition: Home Clinical Impression: Left shoulder pain, Rhomboid muscle strain Activity Restrictions/Additional Instructions: Right-handed, recent left shoulder pain, recent left shoulder injection by Orthopedic surgery, possible new injury with slipping attempting transfers, on exam today having spasm and tenderness along the rhomboid musculature around the medial upper aspect of the shoulder blade, as well as the lower shoulder blade area. X-rays without obvious fracture or dislocation changes. Clinical exam concerning for rhomboid muscle spasm, either due to a new injury, or secondary spasm from ongoing left shoulder pain. Shoulder sling for now. Continue [id number] ibuprofen and/or Tylenol as needed for pain control. Trial of low-dose muscle relaxant methocarbamol/Robaxin. Follow up with Orthopedic surgery Dr. Jefferson as planned early this next week. Prescriptions: New methocarbamol 500 mg tablet 500 mg PO TID 7 Days Qty: 21 0RF No Action (DME) BD 3ml Syringe w/needle 21g x 1 Qty: 100 0RF Rx Instructions: Use along w/needles to inject testosterone. testosterone cypionate [Depo-Testosterone] 200 mg/mL oil 100 mg IM Q2W Qty: 1 0RF Rx Instructions: Inject 100mg (0.5mL) every 2 weeks for hypogonadism. hydrochlorothiazide 12.5 mg tablet 12.5 mg PO QDAY Qty: 90 1RF doxycycline hyclate 100 mg tablet 100 mg PO BID Qty: 20 0RF Referrals: Jean Carlos Jefferson MD [Physician] - Hamida Barber PA-C [Primary Care Provider] - Stand Alone Forms: Patient Portal/API
[2024-04-25] MEDS: methocarbamoL 500 MG TABLET PO (09:07)
--- NOTE | 2024-04-25 09:36 | PC.NURSE ---
Left shoulder pain. Tender to palpation. Pt reports having difficulty transferring himself at home.
--- NOTE | 2024-04-25 11:32 | PC.NURSE ---
Pt able to extend arm up above head but states pushing down causes him pain
--- NOTE | 2024-04-25 12:03 | CM.SWNOTE ---
ED CAR FRAMER Note CAR FRAMER receives consult due to patient's and spouse's request for more support at home. Patient is 73 y/o male who is paraplegic at baseline after spinal surgery several years ago presents with 3 weeks of ongoing Left should pain and weakness. Patient relies on shoulder strength for ADLs and transfers. Patient sees Dr. Jefferson for Ortho and he has an upcoming appt early next week. Patient's PCP is Hamida Barber, Patient has [employer] insurance. CAR FRAMER enters room to meet with patient, patient presents as A/Ox4. Patient states he is usually independent at baseline but due to recent weakness and pain he has had difficulty transferring. Patient states he is interested in help at home as his is not able to lift him. Patient states his is in the lobby setting up a caregiver right now. enters room and states that's she just set up a caregiver that is set up to arrive at the house today at 1300 with [facility]. CAR FRAMER explains the difference between caregivers and Home Health. Patient's states she has been in contact with insurance and looking for home care for patient and unfortunately [facility] is not in their network but all other providers did not serve [facility]. CAR FRAMER provides patient and spouse with senior resource guide, list of DME resources and list of caregiver agencies for future use. Patient's spouse states that she just purchased a grab bar for the toilet for patient. Patient to d/c to home upon medical clearance with BLS, patient to f/u with Ortho and patient to start caregiver services with [facility] today. Griselda Richards, CLASSROOM COORDINATOR
== END 2024-04-25 12:18 | disposition home or self-care (01) ==
PROVIDERS: Emergency Provider Emergency Medicine; PCP Physician Assistant
DX: S29.012A Strain of muscle and tendon of back wall of thorax, initial encounter (principal); M25.512 Pain in left shoulder
CPT/HCPCS: 73030; 99283

== ENCOUNTER → 2024-04-29 15:35 | Outpatient (CLI) | payer OTHER, SELFPAY ==
--- NOTE | 2024-04-29 15:36 | DI.MRI.S_ITS ---
PROCEDURE: MR SHOULDER LT WO CON INDICATIONS: RTC TEAR TECHNIQUE: Noncontrast oblique coronal T2 fast spin echo with fat saturation, oblique sagittal T1 spin echo and T2 fast spin echo with fat saturation, axial T1 spin echo and T2 fast spin echo with fat saturation through the shoulder. COMPARISON: [facility], CR, XR SHOULDER LT MIN 2V, 04/25/2024, 8:21. FINDINGS: Image quality: Excellent. Rotator cuff: Full-thickness, full width tear of the supraspinatus and infraspinatus at the footprint, with tendon retraction to the level of the glenohumeral articulation. Partial-thickness tear of the teres minor, with small amount of fluid tracking along the myotendinous junction. Full-thickness, full width tear of the subscapularis, with tendon retraction to the level of the glenoid as well. There is marked muscle edema of the infraspinatus. Mild atrophy of the supraspinatus. Mild fatty infiltration the supraspinatus, infraspinatus, and the subscapularis. Bones and bursae: Moderate degenerative changes of the acromioclavicular joint. Type 2 acromion. No os acromiale. Moderate subacromial/subdeltoid bursitis. Mild subchondral marrow edema in the greater tuberosity, reactive. Susceptibility artifact about the glenohumeral joint, favoring postprocedural. No acute fracture. Superior subluxation of the humeral head. Capsule and soft tissues: Diffuse labral tear and degeneration. The most proximal aspect of the extra-articular biceps tendon is not visualized, likely torn. The intra-articular biceps tendon is not visualized, likely torn as well. Small glenohumeral effusion. Moderate subcoracoid bursitis. IMPRESSION: 1. Moderate degenerative changes of the acromioclavicular joint. 2. Full-thickness, full width tear of the supraspinatus, infraspinatus, and subscapularis. Partial thickness tear of the teres minor. 3. Full-thickness tear of the proximal biceps tendon. Dictated by: Prudence Cat M.D. on 04/29/2024 at 17:25 Approved by: Prudence Cat M.D. on 04/29/2024 at 17:36
== END ==
PROVIDERS: PCP Physician Assistant; Referring Provider Orthopaedic Surgery; Visit Provider Orthopaedic Surgery
DX: M75.82 Other shoulder lesions, left shoulder (principal); M75.122 Complete rotator cuff tear or rupture of left shoulder, not specified as traumatic; S46.212A Strain of muscle, fascia and tendon of other parts of biceps, left arm, initial encounter
CPT/HCPCS: 73221

== ENCOUNTER → 2024-08-04 07:31 | Outpatient (CLI) | payer OTHER, SELFPAY ==
--- NOTE | 2024-08-04 | DI.US.S_ITS ---
PROCEDURE: US ABDOMEN LIMITED INDICATIONS: history of alcohol use TECHNIQUE: Real-time focused scanning was performed of the abdomen, with image documentation. COMPARISON: None. FINDINGS: The liver demonstrates normal size. The liver demonstrates generalized mildly increased echogenicity. This decreases ultrasound sensitivity for detection of hepatic masses. A hyperechoic nonshadowing focus can be seen within the right liver that measures up to 11 mm. No findings of gallstones or sludge are seen. The gallbladder wall is not thickened, measuring 3 mm or less. Gallbladder wall polyps are seen that measure up to 3 mm. No specific pericholecystic fluid is seen. The sonographic Read sign is negative. There is no biliary dilatation, the common bile duct measures 3 mm. Within the head of the pancreas, there is a complicated cyst seen that measures up to 12 mm. The visualized right kidney is unremarkable, without hydronephrosis. IMPRESSION: There is a complicated cyst within the head of the pancreas that measures up to 12 mm. Please consider a follow-up pancreas protocol MRI for further evaluation (assuming that there is no contraindication). The liver demonstrates increased echogenicity. This finding is nonspecific, yet it is most commonly attributed to fatty infiltration. Gallbladder wall polyps are seen that measure up to 3 mm. Dictated by: Sheldon Alcaraz M.D. on 08/04/2024 at 11:31 Approved by: Sheldon Alcaraz M.D. on 08/04/2024 at 11:34
== END ==
PROVIDERS: PCP Physician Assistant; Referring Provider Physician Assistant; Visit Provider Physician Assistant
DX: K86.2 Cyst of pancreas (principal); K82.4 Cholesterolosis of gallbladder; Z87.898 Personal history of other specified conditions
CPT/HCPCS: 76705

== ENCOUNTER → 2024-08-19 15:07 | Outpatient (CLI) | payer OTHER, SELFPAY ==
--- NOTE | 2024-08-19 15:09 | DI.MRI.S_ITS ---
PROCEDURE: MR ABDOMEN WO/W CON INDICATIONS: pancreatic cyst TECHNIQUE: Coronal HASTE, axial 2D FLASH in- and [id number]; axial breath-hold T2 FSE with fat saturation from the hepatic dome to the iliac crests. Oblique coronal thin-slice and radial thick slab HASTE through the biliary system. Dynamic axial VIBE during administration of contrast. Post-contrast coronal VIBE or 2D FLASH with fat saturation from the hepatic dome to the iliac crests. Optional diffusion weighted imaging and ADC may be performed. COMPARISON: [facility], US, US ABDOMEN LIMITED, 08/04/2024, 7:47. FINDINGS: Image quality: Diagnostic Lower chest: Unremarkable Liver: Left lobe liver cyst. No suspicious focal liver mass Possible hemangioma is seen in the medial portion of segment 7 (). Gallbladder and biliary system: Gallbladder appears unremarkable. No biliary ductal dilation Pancreas: No ductal dilation. At the pancreatic neck there is a multi locular 1.8 x 1.3 centimeters cystic lesion on image 5/16. This appears to communicate with the main duct. There are thin enhancing septations without nodular soft tissue nodule. Spleen: No splenomegaly Adrenals: No discrete nodules Kidneys: No solid mass. No hydronephrosis. Vessels and lymph nodes: The main portal vein is patent. No abdominal aortic aneurysm. No pathologic lymph nodes by size criteria. Bowel and peritoneum: Moderate fecal loading. No small bowel obstruction. No pathologic ascites. Body wall: Unremarkable Pelvis: Unremarkable Bones: There are degenerative changes. IMPRESSION: Multiloculated cystic lesion at the pancreatic neck measuring 1.8 x 1.3 centimeters (5/16). This appears to communicate with the main duct. This may represent IPMN or serous cystadenoma. EUS/FNA can further evaluate. If no intervention is pursued, 1 year follow-up MRI pancreas is suggested Probable hepatic cysts and hemangiomas, attention on follow-up. Other findings above Dictated by: Casey Ram M.D. on 08/21/2024 at 10:30 Approved by: Casey Ram M.D. on 08/21/2024 at 10:38
== END ==
PROVIDERS: PCP Physician Assistant; Referring Provider Physician Assistant; Visit Provider Physician Assistant
DX: K86.2 Cyst of pancreas (principal); K76.89 Other specified diseases of liver
CPT/HCPCS: 74183; A9579

== ENCOUNTER 2024-10-06 04:22 | Emergency (ER) | payer OTHER, SELFPAY ==
[2024-10-06] VITALS (7 sets, daily range): BP systolic 120–138; BP diastolic 65–75; PULSE 48–51; RESP 16; TEMP 36.1; O2SAT 97–100; BMI 21.1
--- NOTE | 2024-10-06 04:22 | DI.CT.S_ITS ---
PROCEDURE: CT HEAD/BRAIN WO CON INDICATIONS: head trauma TECHNIQUE: Noncontrast 4.5 mm thick angled axial sections acquired from the foramen magnum to the vertex, with coronal and sagittal reformats. For radiation dose reduction, the following was used: automated exposure control, adjustment of mA and/or kV according to patient size. COMPARISON: None. FINDINGS: Image quality: Diagnostic. CSF spaces: Basal cisterns are patent. No extra-axial fluid collections. Ventricles are normal in size and shape. Brain: No midline shift. No intracranial masses or hemorrhage. Escobar-white matter interface is normal. Skull and face: Calvarium and visualized facial bones are intact, without suspicious lesions. Anterior scalp contusion. Sinuses: Visualized sinuses and mastoids are clear. IMPRESSION: No acute intracranial pathology. Dictated by: Dmitriy Gaines M.D. on 10/06/2024 at 8:08 Approved by: Dmitriy Gaines M.D. on 10/06/2024 at 8:10
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
[2024-10-06] MEDS: LIDOCAINE 2% W/EPI INJ 10 ML VIAL INJ (04:52)
--- NOTE | 2024-10-06 05:10 | PC.NURSE ---
Wound pressure irrigated with NS
== END 2024-10-06 06:12 | disposition home or self-care (01) ==
PROVIDERS: Emergency Provider Emergency Medicine; PCP Physician Assistant
DX: S01.01XA Laceration without foreign body of scalp, initial encounter (principal); S01.81XA Laceration without foreign body of other part of head, initial encounter; K43.9 Ventral hernia without obstruction or gangrene; G82.50 Quadriplegia, unspecified; W22.8XXA Striking against or struck by other objects, initial encounter
CPT/HCPCS: 12001; 12011; 70450; 99283; 99284